=== PATIENT | male | born 1990 | race Hispanic/Latino ===

== ENCOUNTER 2019-04-27 20:10 | Emergency (ER) | payer OTHER ==
[~2019-04-27] VITALS: Ht 180.3 cm; Wt 81.7 kg
[2019-04-27] MEDS ORDERED: DULOXETINE HCL30 MG PO (20:35)
[2019-04-27] MEDS ORDERED: CARBATROL200 MG PO (20:35)
[2019-04-27] MEDS ORDERED: RISPERIDONE ODT2 MG PO (20:36)
[2019-04-27] MEDS ORDERED: TYLENOL325 MG PO (20:37)
[2019-04-27] MEDS ORDERED: TRAZODONE HCL100 MG PO (20:37)
[2019-04-27] MEDS ORDERED: CIPRO HC OTIC S10 ML AD (20:38)
[2019-04-28] MEDS ORDERED: ACETAZOLAMIDE250 MG PO (06:31)
[2019-04-28] MEDS ORDERED: XALATAN2.5 ML OPTH (06:31)
[2019-04-28] MEDS ORDERED: TIMOPTIC-XE5 M1 OPTH (06:31)
== END 2019-04-28 06:55 | disposition home or self-care (01) ==
LOC: ED 20:10
DX: H40.051 Ocular hypertension, right eye (principal); Z87.891 Personal history of nicotine dependence
CPT/HCPCS: 96365; 96375; 99283-25; J1120; J1170; J1885; J2405